=== PATIENT | female | born 1985 | race Caucasian/White ===

== ENCOUNTER → 2022-01-01 | Outpatient (CLI) | payer BC ==
--- NOTE | 2022-01-01 10:43 | US ---
EXAMINATION TYPE: US transvaginal DATE OF EXAM: 01/01/2022 COMPARISON: NONE CLINICAL HISTORY: N93.0 POST COITAL BLEEDING. spotting between menses TECHNIQUE: Transvaginal (TV). Date of LMP: 12/21/21 EXAM MEASUREMENTS: Uterus: 8.5 x 4.0 x 5.0 cm Endometrial Stripe: 0.8 cm Right Ovary: 3.3 x 1.9 x 2.1 cm Left Ovary: 3.3 x 1.6 x 3.3 cm 1. Uterus: Anteverted heterogeneous 2. Endometrium: appears wnl 3. Right Ovary: follicles noted 4. Left Ovary: dominant follicle = 1.8 x 1.7 x 2.2cm 5. Bilateral Adnexa: wnl 6. Posterior cul-de-sac: wnl IMPRESSION: Bilateral ovarian follicles as noted.
== END | disposition home or self-care (01) ==
LOC: RADUSWWP 09:58
PROVIDERS: ATTEND Obstetrics & Gynecology
DX: N93.0 Postcoital and contact bleeding (principal)
CPT/HCPCS: 76830